=== PATIENT | female | born 1975 | race Caucasian/White ===

== ENCOUNTER → 2017-12-22 | Outpatient (CLI) | payer OTHER ==
[~2017-12-22] MED LIST: DOCU-131 PO; IBUP-1222 PO; OXYC-302 PO
== END | disposition home or self-care (01) ==
LOC: CFH 13:34
PROVIDERS: ATTEND Student in an Organized Health Care Education/Training Program
DX: Z12.31 Encounter for screening mammogram for malignant neoplasm of breast (principal)
CPT/HCPCS: 77063; 77067